=== PATIENT | male | born 1980 | race Caucasian/White ===

== ENCOUNTER 2016-08-19 11:24 | Observation (INO) ==
[2016-08-19] MEDS ORDERED: ASPIRIN 325 MG TABLET PO STA (12:02)
[2016-08-19] MEDS ORDERED: SODIUM CHLORIDE 0.9% 1,000 ML IV STA (12:02)
--- NOTE | 2016-08-19 12:06 | EKG Report ---
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
[2016-08-19 12:23] LABS: Basophils % 0.5 % (0.0-0.8); Eosinophils # 0.2 10*3/uL (0.0-0.87); Eosinophils % 2.4 % (0.00-10.9); Hematocrit 43.1 VOL% (42.0-52.0); Hemoglobin 14.6 GM/DL (14.0-18.0); Immature Granulocytes % 0.4 %; Immature Granulocytes Absolute 0.03 #; Lymphocytes # 2.4 10*3/uL (1.4-4.0); Lymphocytes % 29.7 % (21.2-54.2); Mean Corpuscular HGB Conc 33.9 GM/DL (32-36); Mean Corpuscular Hemoglobin 30 PG (27-34); Mean Corpuscular Volume 87.6 FL (87-102); Mean Platelet Volume 9.6 FL (9.6-12.0); Monocytes # 0.7 10*3/uL (0.11-0.8); Monocytes % 8.9 % (1.7-12.7); Neutrophils # 4.6 10*3/uL (1.4-7.4); Neutrophils % 58.1 % (38.7-73.9); Platelet Count 257 T/CUMM (130-400); Red Blood Count 4.92 MC/CUMM (3.8-5.5); White Blood Count 7.9 T/CUMM (4-12)
[2016-08-19] MEDS ORDERED: ASPIRIN 325 MG TABLET ONE (12:29)
--- NOTE | 2016-08-19 12:32 | XRay Report ---
XR chest 1V portable Indication: Chest pain. Chest one view: Comparison 05/15/2012. Heart size and mediastinal contour are normal. There is diffuse mild parabronchial thickening present. No focal infiltrates are shown. Pleural spaces are clear. Bones are intact. Impression: Mild airways disease such as bronchitis or viral syndrome. No focal pneumonia. PROCEDURE INTERPRETED AT [facility] DEPARTMENT OF RADIOLOGY Final Report Signed by: Mikel Oviedo M.D.
[2016-08-19] MEDS ORDERED: DILTIAZEM 50 MG/10 ML VIAL IV ONE (12:49)
[2016-08-19 12:50] LABS: Albumin 3.8 G/DL (3.4-5.0); Bilirubin,Total 0.4 MG/DL (0.2-1.0); Osmolality,Calculated 278.4 MOS/KG (273-304); Potassium 3.9 MMOL/L (3.5-5.1); Total Protein 7.2 G/DL (6.4-8.3)
[2016-08-19] MEDS ORDERED: DILTIAZEM 50 MG/10 ML VIAL IV STA (13:15)
--- NOTE | 2016-08-19 13:22 | Emergency Department Note ---
Vincenzo Poon Meredith, am scribing for, and in the presence of, Bib Estes MD 13:13. Meera Poon Phillip K, MD, personally performed the services described in this documentation, ascribed by Lakeisha Loya in my presence, and it is both accurate and complete 319 . Arrival - Arrival Chief Complaint: Chest Pain Stated Complaint: CHEST PAINS! ED Nursing Triage Note: c/o sob, chest pain that started today. +SOB. hx: HTN , anxiety. syncopal episode in waiting room Mode of Arrival: Stretcher Limitations: No Limitations Source: Patient, Old Records Reviewed, RN Notes Reviewed Time Seen by Provider: 08/19/16 11:56 - History of Present Illness HPI Narrative: Pt is a 35 y/o white male brought to the ED via stretcher s/p syncopal episode in the waiting room. He confirms chest pain radiating into jaw and shoulders, shortness of breath, and diaphoresis which onset today. Pt did has caffeine this morning. He takes Lisinopril and Adderall. Pt has a history of A-fib, HTN, and anxiety. He is a current everyday smoker. Onset (ago): hour(s) Allergies/Adverse Reactions: Allergies Allergy/AdvReac Type Severity Reaction Status Date / Time No Known Allergies Allergy Verified 08/19/16 11:45 Home Medications: Home Medications Medication Instructions Recorded Confirmed Type Gabapentin [Gabapentin] 01/13/15 01/13/15 History Lisinopril [Lisinopril] 01/13/15 01/13/15 History Nortriptyline [Pamelor] 01/13/15 01/13/15 History Trazodone HCl 01/13/15 01/13/15 History Ibuprofen Tab [Motrin Tab] 600 mg PO QID #30 tablet 01/14/15 Rx Review of System - Review of System 12 point system: reviewed and no additional remarkable complaints except as stated - Review of System Respiratory: Present: as per HPI, other (SOB) Cardiovascular: Present: as per HPI, chest pain, syncope Medical,Surgical,& Family Hx - Medical History Cardio: History of: Cardiac Dysrhythmia (a-fib), Hypertension Psychological: History of: Anxiety Disorders - Surgical History Neurologic Surgeries: Patient denies: Neurologic Surgery - Family History Family History: Denies;: Additional Family History - Social History Smoking Status: Current every day smoker Frequency of Alcohol Use: None Type of Drug Use: None Exam Vital Signs: Vital Signs Temperature 98.0 F 08/19/16 11:42 Pulse Rate 143 H 08/19/16 11:42 Respiratory Rate 18 08/19/16 12:42 Blood Pressure 128/107 08/19/16 11:42 O2 Sat by Pulse Oximetry 100 08/19/16 11:42 - General General appearance: alert, in no apparent distress - Head Head exam: Present: atraumatic, normocephalic - Eye Eye exam: Present: normal appearance, PERRL, EOMI - ENT ENT exam: Present: mucous membranes moist, normal external ear exam - Neck Neck exam: Present: full ROM, trachea midline. Absent: tenderness, meningismus , lymphadenopathy, thyromegaly - Chest Chest inspection: Present: symmetric chest wall rise. Absent: tenderness, rash - Respiratory Respiratory exam: Present: normal lung sounds bilaterally. Absent: respiratory distress - Cardiovascular Cardiovascular exam: Present: tachycardia, irregular rhythm. Absent: murmur, rubs, gallop - Abdominal Exam Abdominal exam: Present: soft, normal bowel sounds. Absent: distention, tenderness - Extremities Exam Extremities exam: Present: full ROM, normal capillary refill. Absent: tenderness, pedal edema, calf tenderness - Back Exam Back exam: Present: full ROM. Absent: tenderness - Neurological Exam Neurological exam: Present: alert, oriented X3, CN II-XII intact. Absent: motor sensory deficit - Psychiatric Psychiatric exam: Present: normal affect, normal mood - Skin Skin exam: Present: warm, dry, intact, normal color Course Course Narrative: Admit to Dr. Baugh Results - Labs CBC & BMP: 08/19/16 12:08 08/19/16 12:08 Lab Results: I have reviewed the patients labs (troponins are negative) Labs: Laboratory Tests 08/19/16 12:08 WBC 7.9 RBC 4.92 Hgb 14.6 Hct 43.1 Plt Count 257 - EKG EKG results: interpreted by KARI (atrial fibrillation with rapid ventricular rate) - Diagnostic Findings Procedure: Chest x-ray: report reviewed by me (Mild airways disease such as bronchitis or viral syndrome. No focal pneumonia. ) Disposition Clinical Impression: Atrial fibrillation with RVR, Chest pain, Syncope, Hypotension Case discussed with: patient Disposition: Still a Patient Condition: Guarded Additional Instructions: Admit to Dr. Jonah Baugh
[2016-08-19] MEDS ORDERED: ONDANSETRON 4 MG/2 ML VIAL IV PRN (13:25)
[2016-08-19] MEDS ORDERED: MAGNESIUM SULF RIDER 4 GM in PREMIX 1 EACH IV PRN (13:25)
[2016-08-19] MEDS ORDERED: MAGNESIUM SULF RIDER 2 GM in PREMIX 1 EACH IV PRN (13:25)
[2016-08-19] MEDS ORDERED: DILTIAZEM 100 MG VIAL.ADD IV ONE (13:32)
[2016-08-19] MEDS: DILTIAZEM INJ 100 MG in SODIUM CHLORIDE 0.9% 100 ML IV SCH ×2 (14:46→21:43)
--- NOTE | 2016-08-19 15:24 | EKG Report ---
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
[2016-08-19] MEDS: SODIUM CHLORIDE 0.9% 1,000 ML IV SCH ×2 (15:30→20:47)
[2016-08-19] MEDS ORDERED: MAGNESIUM SULF RIDER 2 GM in PREMIX 1 EACH IV ONE (17:59)
--- NOTE | 2016-08-19 18:13 | Cardiology History & Physical ---
I, Lady Francisco RN, am scribing for, and in the presence of, Denny Baugh MD 18:12. Assessment and Plan (1) Atrial fibrillation with RVR Status: Acute Assessment and plan: The patient has a long-standing history of paroxysmal atrial fibrillation. Continue current plan of care with Cardizem gtt. Review of electrolytes reveal Potassium 3.9 and mag of 2.0, will add Potassium chloride 20 meqs daily and 2 grams of magnesium IV times one. Will also add vitamin C at this time. TSH ordered. If he does not convert to sinus rhythm we will consider cardioversion. Current Visit: Yes (2) Paroxysmal a-fib Status: Chronic Current Visit: Yes (3) Hypertension Status: Chronic Assessment and plan: This is clinically stable, continue current plan of care. I may make some adjustments in his antihypertensive regimen to keep his blood pressure better controlled and perhaps help prevent arrhythmia. Current Visit: Yes (4) Dyslipidemia Status: Acute Assessment and plan: Lipid panel ordered. Current Visit: Yes (5) Anxiety Status: Chronic Current Visit: Yes History of Present Illness Chief complaint: chest pain and heart palpitations History of present illness: Mr. Gaytan is a 35 year old male without known coronary artery disease, not routinely followed by cardiology. He reports that he saw a [place] repair mechanic several years ago for atrial fib but has not followed up in several years. His PCP is Gary Uribe. He has risk factors significant for current everyday smoker , dyslipidemia, and hypertension. His past medical history includes atrial fibrillation, gerd, anxiety and attention deficit disorder (patient takes adderall for this). He denies any significant family history of heart disease. He was in his usual state of health until around noon today when he began experiencing heart palpitations and chest pain that radiated to his jaw. This was also associated with lightheadedness and diaphoresis. This frightened him and he presented to the ER for further evaluation. Upon arrival to the ER, he was noted to be in atrial fibrillation with rapid ventricular response (HR 160) . Cardizem gtt was started. Cardizem is currently infusing at 15 mg/hr. He denies nausea, vomiting, edema, shortness of breath, GLORIA, orthopnea, and PND. He was seen and examined in the CCU. Currently he is in atrial fibrillation with heart rates ranging from 115-125. He is in no acute distress. He is prescribed adderall 30 mg BID for attention deficit disorder. He also admits that he drank several cups of coffee this morning while at work. He reports that he has had multiple episodes of palpations over the past several months. These episodes usually last several minutes and are usually relieved after rest. He denies ever experiencing chest pain until today. He describes the pain as a throbbing pain that radiated to his jaw. He reports being very active and attends the gym on a regular basis. He denies chest pain while exerting himself at the gym. He also denies dyspnea on exertion. He is currently chest pain free unless he takes a deep breath. He reports this makes his chest pain return. He doesn't know of any specific triggers for his paroxysmal atrial fibrillation, but caffeine and/or Adderall could be factors. He does snore but does not have excessive daytime sleepiness. We could explore evaluation for sleep apnea at some point. Labs - Troponin has been negative times two. Potassium is noted at 3.9, and Magnesium - 2.0 EKG - reveals afib with RVR Home Medications Medication Instructions Recorded Confirmed Type Gabapentin 300 mg PO TID 08/19/16 08/19/16 History Lisinopril 20 mg PO QPM 08/19/16 08/19/16 History Home Medications Medication Instructions Recorded Confirmed Type Gabapentin 300 mg PO TID 08/19/16 08/19/16 History Lisinopril 20 mg PO QPM 08/19/16 08/19/16 History Allergies Allergy/AdvReac Type Severity Reaction Status Date / Time No Known Allergies Allergy Verified 08/19/16 11:45 - Constitutional Constitutional: Present: fatigue. Absent: chills - Cardiovascular Cardiovascular: Present: diaphoresis, radiating jaw, neck or arm pain, lightheadedness, palpitations. Absent: chest pain with activity, claudication, dyspnea, dyspnea on exertion, edema, orthopnea, PND - Respiratory Respiratory: Present: pain on inspiration. Absent: dyspnea, hemoptysis, dyspnea on exertion, wheezing, snoring, change in phlegm color - Gastrointestinal Gastrointestinal: Absent: abdominal pain, change in bowel habits, constipation, dyspepsia, dysphagia, heartburn, hematemesis, hematochezia, melena, nausea, vomiting - Neurological Neurological: Present: dizziness, syncope. Absent: behavioral changes, confusion, focal weakness, frequent falls, headache(s), numbness - Psychiatric Psychiatric: Present: anxiety, panic attacks. Absent: depression - Hematologic/Lymphatic Hematologic/Lymphatic: Absent: easy bleeding, easy bruising, lymphadenopathy Medical,Surgical,& Family Hx - Medical History Cardio: History of: Cardiac Dysrhythmia (a-fib), Hypertension Psychological: History of: Anxiety Disorders, ADHD Neurology: History of: Peripheral Neuropathy Endocrine: No history of: Diabetes Mellitus (IDDM), Diabetes Mellitus (NIDDM), Thyroid Disorder Respiratory: No history of: Asthma, COPD, Obstructive Sleep Apnea, Pulmonary Embolism, Pulmonary Hypertension, Lung Cancer Genitourinary: History of: Kidney Stones Gastrointestinal: History of: GERD Musculoskeletal: History of: Back/Neck Problems (Bulged disks) - Surgical History Cardiac Surgeries: Patient Denies: Cardiac Catheterization Neurologic Surgeries: Patient denies: Neurologic Surgery HEENT Surgeries: Surgical HX of: Tonsilectomy & Adenoidectomy Abdominal Surgeries: Patient denies: Appendectomy, Cholecystectomy Orthopedic Surgeries: Patient denies;: Orthopedic Surgery - Family History Family History: Reports;: Family Heart Disease (Maternal Grandmother), Additional Family History (Mysasthenia Gravis) Denies;: Family Cancer, Family Diabetes - Social History Smoking Status: Current every day smoker Have you smoked in the last 12 months: Yes Frequency of Alcohol Use: Occasionally Type of Drug Use: None Cardiology Physical Exam - Constitutional Vitals: Vital Signs Temp Pulse Resp BP Pulse Ox 98 F 145 H 19 119/83 99 08/19/16 14:56 08/19/16 15:27 08/19/16 15:27 08/19/16 15:27 08/19/16 15:27 Intake and Output 08/19/16 08/19/16 08/19/16 06:59 14:59 22:59 Other: Weight 229 lb Patient Weight 08/20/16 06:59 Weight 229 lb General appearance: normal weight, no acute distress - Head Head exam: Present: normal inspection, normocephalic, atraumatic - Eye Pupils: Present: TR. Absent: constricted, dilated, fixed, irregular - Neck Neck exam: Present: normal inspection. Absent: lymphadenopathy, meningismus, tenderness, thyromegaly - Respiratory Respiratory exam: Present: clear to auscultation bilaterally. Absent: accessory muscle use, chest wall tenderness, prolonged expiratory phase, rales, rhonchi, stridor, wheezes - Cardiovascular Cardiovascular exam: Present: irregular rhythm, tachycardia. Absent: carotid bruit, gallop, rubs - GI/Abdominal GI/Abdominal exam: Present: normal bowel sounds, soft. Absent: distended, firm , mass, tenderness - Extremities Exam Extremities exam: Present: normal inspection, normal capillary refill. Absent: calf tenderness, edema - Neurological Exam Neurological exam: Present: alert, oriented X3, normal gait - Psychiatric Psychiatric exam: Present: normal affect, normal mood, anxious. Absent: agitated, depressed - Skin Skin exam: Present: normal color, warm, dry Result/EKG - Labs CBC & BMP: 08/19/16 12:08 08/19/16 12:08 Lab Results: I have reviewed the past 24 hour labs Labs: Laboratory Results - last 24 hr 08/19/16 16:01 Troponin I 0.042 - EKG EKG results: interpreted by me EKG shows: atrial fibrillation I, Denny Baugh MD, personally performed the services described in this documentation, ascribed by Lady Francisco RN in my presence, and it is both accurate and complete 812 .
[2016-08-19] MEDS ORDERED: IBUPROFEN 400 MG TABLET PO PRN (20:14)
[2016-08-19] MEDS: ASCORBIC ACID 500 MG TABLET PO SCH (20:45)
[2016-08-19 23:40] LABS: Barbiturates Screen,Urine Negative (Negative); Benzodiazepines Screen,Urine Negative (Negative); Cannabinoid Screen,Urine Negative (Negative); Opiate Screen,Urine Negative (Negative); Phencyclidine Screen,Urine Negative (Negative)
[2016-08-20] MEDS: SODIUM CHLORIDE 0.9% 1,000 ML IV SCH (04:30)
[2016-08-20 04:39] LABS: Magnesium 2.4 MG/DL (1.8-2.4); Potassium 4.3 MMOL/L (3.5-5.1)
[2016-08-20 04:42] LABS: Risk Ratio 2.62; VLDL CHOLESTEROL 20.8 MG/DL
[2016-08-20 08:47] VITALS: BP 115/69
[2016-08-20] MEDS ORDERED: POTASSIUM CHLORIDE 20 MEQ TABLET PO SCH (09:00)
[2016-08-20] MEDS: ASCORBIC ACID 500 MG TABLET PO SCH (09:11)
--- NOTE | 2016-08-20 09:54 | Discharge Summary ---
Hospital Course - Hospital Course Hospital Course: The patient is a 35-year-old male with a history of paroxysmal atrial fibrillation. His primary physician is Dr. corado. He has seen a paint prepper at [place] in the past related to the proximal systems of atrial fibrillation, but has not been followed for that recently. Patient came in to the hospital with an episode of palpitations that created some chest discomfort. He was in atrial fibrillation with rapid ventricular response with a heart rate of around 150-160. We started the patient on a diltiazem drip and make some adjustments in his medication and overnight he spontaneously converted back to sinus rhythm. The patient has a chads score of 1, so we are going to manage him with aspirin at this time for anticoagulation. Of note, he does use Adderall for attention deficit disorder. There is possible this could play a role in the development of atrial fibrillation. He also uses caffeine and had several cups of coffee on the day of the episode. We may have to stop the Adderall of the episodes recur. In addition, he needs to avoid excessive caffeine intake. I did have skin about symptoms of sleep apnea, but he clinically does not appear to have it. This is something else to consider if he has recurrent episodes. Otherwise, there did not appear to be any specific triggers for his atrial fibrillation. His magnesium was very slightly less than optimal at 3.9. I prefer the potassium to greater than 4.0 in patients with paroxysmal arrhythmias. Ultimately, I think we can discharge him back home today with some minor adjustments in his medical regimen to try to help prevent the atrial fibrillation. I will arrange a follow-up with him in a couple of weeks. Diagnosis - Discharge Diagnosis (1) Atrial fibrillation with RVR Status: Acute (2) Paroxysmal a-fib Status: Chronic (3) Hypertension Status: Chronic (4) Dyslipidemia Status: Acute (5) Anxiety Status: Chronic Discharge Plan - Discharge Data Disposition: Disch To Home/Self Care - Discharge Medications New Ascorbic Acid Tab [Vitamin C Tab] 1,000 mg PO BID #60 tablet Potassium Chloride Cap/Tab [K Dur] 10 meq PO DAILY #30 tablet Aspirin [Ecotrin] 81 mg PO DAILY #90 tablet.dr Ambrosio Gabapentin 300 mg PO TID Lisinopril 20 mg PO QPM - Follow Up or Referral Follow Up: Denny Baugh MD [Physician] - (2 weeks with CMP, mag, vitamin D, CBC, EKG) - Forms/Instructions Exam - Constitutional Vitals: Period Temp Pulse Resp BP Sys/Suarez Pulse Ox Last 24 Hr 97.7 F-98.7 F 55-146 13-22 92-136/63-89 97-99 Discharge Results Labs on day of discharge: Labs from last 24 hours 08/20/16 08/20/16 08/19/16 03:52 03:52 21:15 Sodium 143 Potassium 4.3 Chloride 109 H Carbon Dioxide 26 Anion Gap 12.3 BUN 16 Creatinine 0.90 GFR Calculation 140 BUN/Creatinine Ratio 17.00 Glucose 101 Calculated Osmolality 285.0 Calcium 8.0 L Magnesium 2.4 Troponin I Triglycerides 104 Cholesterol 152 LDL Cholesterol 87.0 VLDL Cholesterol 20.8 HDL Cholesterol 58 Heart Disease Risk Ratio 2.62 TSH 3rd Generation Urine Opiates Screen Negative Ur Barbiturates Screen Negative Ur Phencyclidine Scrn Negative U Amphetamine/Methamph Positive H U Benzodiazepines Scrn Negative U Cocaine Metab Screen Negative U Cannabinoids Screen Negative 08/19/16 08/19/16 08/19/16 19:01 16:01 16:01 Sodium Potassium Chloride Carbon Dioxide Anion Gap BUN Creatinine GFR Calculation BUN/Creatinine Ratio Glucose Calculated Osmolality Calcium Magnesium Troponin I 0.042 0.042 Triglycerides Cholesterol LDL Cholesterol VLDL Cholesterol HDL Cholesterol Heart Disease Risk Ratio TSH 3rd Generation 2.020 Urine Opiates Screen Ur Barbiturates Screen Ur Phencyclidine Scrn U Amphetamine/Methamph U Benzodiazepines Scrn U Cocaine Metab Screen U Cannabinoids Screen DS: Provider Date of admission: 08/19/16 13:24 Primary care physician: . No PCP Attending physician on admission: Denny Baugh MD Consults: 08/19/16 13:31 Consult to Pharmacy [CONS] Routine Reason for Pharmacy Consult: Adjust Meds Renal Funct Discharging clinician: Denny Baugh MD
== END 2016-08-20 10:51 | disposition home or self-care (01) ==
LOC: N.EDINP 11:24 → N.ED 11:24 → N.CC 14:08
PROVIDERS: ADMIT Internal Medicine Cardiovascular Disease; ATTEND Internal Medicine Cardiovascular Disease